=== PATIENT | female | born 1955 | race Asian ===

== ENCOUNTER → 2018-01-16 | Outpatient (CLI) | payer OTHER ==
[~2018-01-16] MED LIST: CALCIUM PO; ENOX80DI9 SQ; FERR160T PO; HYDR200T4 PO; LEVO PO; LEVO112T7 PO; MULT1TAB70 PO; OMEG300C3 PO; OMEP20CA4 PO
== END | disposition home or self-care (01) ==
LOC: RADPV 11:05
PROVIDERS: ATTEND Family Medicine
DX: M16.11 Unilateral primary osteoarthritis, right hip (principal)
CPT/HCPCS: 73502

== ENCOUNTER → 2018-11-20 | Outpatient (CLI) | payer OTHER | END | disposition home or self-care (01) | LOC: RADPV 09:49 | PROVIDERS: ATTEND Family Medicine | DX: M12.88 Other specific arthropathies, not elsewhere classified, other specified site (principal); M25.70 Osteophyte, unspecified joint | CPT/HCPCS: 72040 ==

== ENCOUNTER → 2018-12-14 | Outpatient (CLI) | payer OTHER | END | disposition home or self-care (01) | LOC: RADPV 09:36 | PROVIDERS: ATTEND Family Medicine | DX: Z01.818 Encounter for other preprocedural examination (principal); I70.0 Atherosclerosis of aorta; M43.22 Fusion of spine, cervical region; I51.7 Cardiomegaly ==

== ENCOUNTER 2019-01-25 20:18 | Emergency (ER) | payer OTHER ==
[~2019-01-25] VITALS: Ht 157.5 cm; Wt 62.0 kg
[~2019-01-25 20:18] MED LIST changes: -CALCIUM PO; -ENOX80DI9 SQ; -FERR160T PO; -LEVO PO; -LEVO112T7 PO; +LEVO88TA4 PO; +LISI-661 PO; -MULT1TAB70 PO; -OMEG300C3 PO; -OMEP20CA4 PO; +PERCT PO; +RIVA10 PO; +SIMV-259 PO
[2019-01-25 20:54] LABS: GLUCOSE,POINT OF CARE 128 MG/DL (70-110)
[2019-01-25 22:01] LABS: EOSINOPHILS % (AUTO) 1.5 % (1.0-6.0); HEMATOCRIT 33.2 % (36-46); HEMOGLOBIN 10.6 g/dL (12.0-16.0); LYMPHOCYTES # (AUTO) 1.1 K/uL (1.0-4.8); LYMPHOCYTES % (AUTO) 14.4 % (22.0-44.0); MEAN CORPUSCULAR HEMOGLOBIN 26.2 pg (26.0-34.0); MEAN CORPUSCULAR HGB CONC 32.1 G/dL (31.0-37.0); MEAN CORPUSCULAR VOLUME 82 fL (80-100); MONOCYTES # (AUTO) 0.5 K/uL (0.1-1.0); MONOCYTES % (AUTO) 6.3 % (2.0-9.0); NEUTROPHILS # (AUTO) 5.8 K/uL (1.8-7.7); NEUTROPHILS % (AUTO) 76.8 % (40.0-70.0); PLATELET COUNT (AUTO) 338 K/uL (150-450); RED BLOOD CELL COUNT(AUTO) 4.06 MIL/uL (4.00-5.20); RED CELL DISTRIBUTION WIDTH 14.2 % (11.5-14.5)
[2019-01-25 22:04] LABS: ANION GAP 8 mmol/L (8-16); CALCIUM, TOTAL 9.3 mg/dL (8.8-10.5); CARBON DIOXIDE 27 mmol/L (22-29); CHLORIDE 106 mmol/L (98-107); CREATININE 0.65 mg/dL (0.60-1.30); GLOMERULAR FILTR. RATE CALC > 60 mL/min (>60); GLUCOSE,RANDOM 134 mg/dL (70-110); SODIUM SERUM 141 mmol/L (136-145); UREA NITROGEN, BLOOD 8 mg/dL (7-18)
[2019-01-25 22:09] LABS: ALANINE AMINOTRANSFERASE 18 U/L (12-78); ALBUMIN 3.1 g/dL (3.4-5.0); ALKALINE PHOSPHATASE 64 U/L (46-116); ASPARTATE AMINOTRANSFERASE 18 U/L (15-37); BILIRUBIN,TOTAL 0.4 mg/dL (0.1-1.0); TOTAL PROTEIN, SERUM 7.1 g/dL (6.4-8.2)
[2019-01-25 22:12] LABS: INR 0.9 (0.9-1.1); PROTHROMBIN TIME 9.9 SEC (9.4-11.6)
[2019-01-26 01:25] VITALS: BP 130/88
== END 2019-01-26 01:35 | disposition home or self-care (01) ==
LOC: EMS 20:19
DX: F41.9 Anxiety disorder, unspecified (principal); F43.0 Acute stress reaction; E03.9 Hypothyroidism, unspecified; Z96.641 Presence of right artificial hip joint; Z88.6 Allergy status to analgesic agent; Z88.8 Allergy status to other drugs, medicaments and biological substances; Z79.899 Other long term (current) drug therapy
CPT/HCPCS: 84443

== ENCOUNTER 2019-01-31 07:21 | Inpatient (IN) | payer OTHER ==
[~2019-01-31] VITALS: Ht 157.5 cm; Wt 60.0 kg
[2019-01-31] MEDS ORDERED: DiphenhydrAMINE HCL 50 MG/ML VIAL IVP ONE (08:15)
[2019-01-31] MEDS ORDERED: ONDANSETRON HCL 4 MG/2 ML VIAL IVP ONE (08:15)
[2019-01-31] MEDS ORDERED: MORPHINE SULFATE 4 MG/ML SYRINGE IVP ONE (08:15)
[2019-01-31 09:34] LABS: BASOPHILS % (AUTO) 0.8 % (0.0-2.0); EOSINOPHILS % (AUTO) 0.7 % (1.0-6.0); HEMATOCRIT 33.2 % (36-46); HEMOGLOBIN 10.5 g/dL (12.0-16.0); LYMPHOCYTES # (AUTO) 0.9 K/uL (1.0-4.8); LYMPHOCYTES % (AUTO) 10.2 % (22.0-44.0); MEAN CORPUSCULAR HGB CONC 31.7 G/dL (31.0-37.0); MEAN CORPUSCULAR VOLUME 82 fL (80-100); MONOCYTES # (AUTO) 0.4 K/uL (0.1-1.0); MONOCYTES % (AUTO) 4.9 % (2.0-9.0); NEUTROPHILS # (AUTO) 7.5 K/uL (1.8-7.7); NEUTROPHILS % (AUTO) 83.4 % (40.0-70.0); PLATELET COUNT (AUTO) 486 K/uL (150-450); RED BLOOD CELL COUNT(AUTO) 4.04 MIL/uL (4.00-5.20); RED CELL DISTRIBUTION WIDTH 14.2 % (11.5-14.5)
[2019-01-31 09:46] LABS: PROTHROMBIN TIME 10.5 SEC (9.4-11.6)
[2019-01-31 09:54] LABS: ANION GAP 7 mmol/L (8-16); CALCIUM, TOTAL 9.7 mg/dL (8.8-10.5); CARBON DIOXIDE 29 mmol/L (22-29); CHLORIDE 104 mmol/L (98-107); GLOMERULAR FILTR. RATE CALC > 60 mL/min (>60); GLUCOSE,RANDOM 132 mg/dL (70-110); POTASSIUM 4.5 mmol/L (3.5-5.1); SODIUM SERUM 140 mmol/L (136-145); UREA NITROGEN, BLOOD 13 mg/dL (7-18)
[2019-01-31 10:08] LABS: ALANINE AMINOTRANSFERASE 17 U/L (12-78); ALBUMIN 3.3 g/dL (3.4-5.0); ALKALINE PHOSPHATASE 82 U/L (46-116); ASPARTATE AMINOTRANSFERASE 15 U/L (15-37); BILIRUBIN,TOTAL 0.3 mg/dL (0.1-1.0); THYROID STIMULATING HORMONE 9.04 uIU/mL (0.36-3.74); TOTAL PROTEIN, SERUM 7.5 g/dL (6.4-8.2)
[2019-01-31] MEDS ORDERED: ACETAMINOPHEN 325 MG TABLET PO PRN (10:45)
[2019-01-31] MEDS ORDERED: ONDANSETRON HCL 4 MG/2 ML VIAL IVP PRN ×2 (10:45→11:30)
[2019-01-31] MEDS ORDERED: HYDROCODONE/ACETAMINOPHEN 5-325 MG TABLET PO PRN (10:45)
[2019-01-31] MEDS ORDERED: 0.9% SODIUM CHLORIDE 10 ML SYRINGE IVP PRN ×2 (10:45→11:30)
[2019-01-31] MEDS ORDERED: MORPHINE SULFATE 2 MG/ML SYRINGE IVP PRN ×2 (10:45→11:30)
[2019-01-31] MEDS ORDERED: IPRATROPIUM BROMIDE 0.5 MG/2.5 ML NEB SOLUTION NEB PRN (11:30)
[2019-01-31] MEDS ORDERED: BISACODYL 10 MG RECTAL RECTAL SUPPOSITORY PR PRN (11:30)
[2019-01-31] MEDS ORDERED: ALBUTEROL SULFATE 2.5 MG/0.5 ML NEB SOLUTION NEB PRN (11:30)
[2019-01-31] MEDS ORDERED: MAGNESIUM HYDROXIDE SUSPENSION 30 ML UDCUP PO PRN (11:30)
[2019-01-31 15:15] VITALS: BP 124/52
[2019-01-31] MEDS: OxyCODONE HCL/ACETAMINOPHEN 5-325 MG TABLET PO PRN (16:46)
[2019-01-31 18:45] VITALS: BP 141/70
[2019-01-31] MEDS: HYDROmorphone 2 MG/ML SYRINGE IVP PRN (18:47)
[2019-01-31] MEDS: DOCUSATE SODIUM 100 MG CAPSULE PO SCH (20:17)
[2019-01-31 20:23] VITALS: BP 153/68
[2019-01-31] MEDS ORDERED: HEPARIN SODIUM,PORCINE 5,000 UNITS/ML VIAL SQ SCH (21:00)
[2019-02-01] VITALS (7 sets, daily range): BP systolic 112–148; BP diastolic 49–68
[2019-02-01] MEDS: OxyCODONE HCL/ACETAMINOPHEN 5-325 MG TABLET PO PRN (00:21)
[2019-02-01] MEDS: LEVOTHYROXINE SODIUM 100 MCG TABLET PO SCH (05:58)
[2019-02-01 06:11] LABS: BASOPHILS % (AUTO) 1.5 % (0.0-2.0); EOSINOPHILS % (AUTO) 2.7 % (1.0-6.0); HEMOGLOBIN 10.1 g/dL (12.0-16.0); LYMPHOCYTES # (AUTO) 1.4 K/uL (1.0-4.8); LYMPHOCYTES % (AUTO) 22.1 % (22.0-44.0); MEAN CORPUSCULAR HEMOGLOBIN 26.7 pg (26.0-34.0); MEAN CORPUSCULAR HGB CONC 32.7 G/dL (31.0-37.0); MEAN CORPUSCULAR VOLUME 82 fL (80-100); MONOCYTES # (AUTO) 0.5 K/uL (0.1-1.0); MONOCYTES % (AUTO) 7.2 % (2.0-9.0); NEUTROPHILS # (AUTO) 4.2 K/uL (1.8-7.7); NEUTROPHILS % (AUTO) 66.5 % (40.0-70.0); PLATELET COUNT (AUTO) 472 K/uL (150-450); RED BLOOD CELL COUNT(AUTO) 3.79 MIL/uL (4.00-5.20); RED CELL DISTRIBUTION WIDTH 14.1 % (11.5-14.5)
[2019-02-01 06:26] LABS: ALANINE AMINOTRANSFERASE 14 U/L (12-78); ALBUMIN 2.9 g/dL (3.4-5.0); ALKALINE PHOSPHATASE 74 U/L (46-116); ANION GAP 5 mmol/L (8-16); ASPARTATE AMINOTRANSFERASE 12 U/L (15-37); BILIRUBIN,TOTAL 0.4 mg/dL (0.1-1.0); CALCIUM, TOTAL 9.3 mg/dL (8.8-10.5); CARBON DIOXIDE 29 mmol/L (22-29); CHLORIDE 103 mmol/L (98-107); CREATININE 0.73 mg/dL (0.60-1.30); GLOMERULAR FILTR. RATE CALC > 60 mL/min (>60); GLUCOSE,RANDOM 108 mg/dL (70-110); POTASSIUM 4.2 mmol/L (3.5-5.1); SODIUM SERUM 137 mmol/L (136-145); TOTAL PROTEIN, SERUM 6.9 g/dL (6.4-8.2); UREA NITROGEN, BLOOD 14 mg/dL (7-18)
[2019-02-01] MEDS: DOCUSATE SODIUM 100 MG CAPSULE PO SCH ×2 (08:52→20:06)
[2019-02-01] MEDS: SIMVASTATIN 10 MG TABLET PO SCH (08:52)
[2019-02-01] MEDS: PANTOPRAZOLE SODIUM 40 MG DR TABLET PO SCH (08:52)
[2019-02-01] MEDS: HYDROXYCHLOROQUINE SULFATE 200 MG TABLET PO SCH (08:52)
[2019-02-01] MEDS: LISINOPRIL 10 MG TABLET PO SCH (08:53)
[2019-02-01] MEDS: MULTIVITAMINS WITH MINERALS, THERAPEUTIC TABLET PO SCH (12:12)
[2019-02-02] MEDS ORDERED: RINGERS SOLUTION,LACTATED 1,000 ML IV SCH (05:45)
[2019-02-02] MEDS ORDERED: RINGERS SOLUTION,LACTATED 1,000 ML IV ONE ×2 (06:00→07:02)
[2019-02-02] MEDS: LEVOTHYROXINE SODIUM 100 MCG TABLET PO SCH (06:19)
[2019-02-02] MEDS ORDERED: SODIUM CHLORIDE 0.9% 100 ML ONE (07:02)
[2019-02-02] MEDS ORDERED: POVIDONE-IODINE 30 GM OINTMENT TP ONE (07:02)
[2019-02-02] MEDS ORDERED: SODIUM CHLORIDE 0.9% 10 ML ONE ×2 (07:02→10:16)
[2019-02-02] MEDS ORDERED: SODIUM CL IRRIG SOLN BAG 3,000 ML IRRIG ONE ×2 (07:02→09:33)
[2019-02-02] MEDS ORDERED: BACITRACIN 50,000 UNITS/VIAL ONE ×2 (07:03→10:16)
[2019-02-02] MEDS ORDERED: BUPIVACAINE LIPOSOME/PF 1.3%-13.3MG/ML SUSPENSION 20 ML VIAL INJ ONE (07:30)
[2019-02-02] MEDS ORDERED: TRANEXAMIC ACID 1,000 MG in DEXTROSE 5%-WATER 50 ML IV ONE (07:30)
[2019-02-02] MEDS ORDERED: FentaNYL CITRATE-PF 100 MCG/2 ML VIAL IVP PRN (08:15)
[2019-02-02] MEDS ORDERED: HYDROmorphone 2 MG/ML SYRINGE IVP PRN (08:15)
[2019-02-02] MEDS: HYDROXYCHLOROQUINE SULFATE 200 MG TABLET PO SCH (09:00)
[2019-02-02] MEDS: PANTOPRAZOLE SODIUM 40 MG DR TABLET PO SCH (09:00)
[2019-02-02] MEDS: DOCUSATE SODIUM 100 MG CAPSULE PO SCH ×3 (09:00→21:20)
[2019-02-02] MEDS: LISINOPRIL 10 MG TABLET PO SCH (09:00)
[2019-02-02] MEDS: MULTIVITAMINS WITH MINERALS, THERAPEUTIC TABLET PO SCH (09:00)
[2019-02-02] MEDS ORDERED: DEXTROSE 5%-LACTATED RINGERS 1,000 ML IV SCH (11:22)
[2019-02-02] MEDS ORDERED: ZOLPIDEM TARTRATE 10 MG TABLET PO PRN (11:30)
[2019-02-02] MEDS ORDERED: ONDANSETRON HCL 4 MG/2 ML VIAL IVP PRN (11:30)
[2019-02-02] MEDS ORDERED: BISACODYL 10 MG RECTAL RECTAL SUPPOSITORY PR PRN (11:30)
[2019-02-02] MEDS ORDERED: DiphenhydrAMINE HCL 50 MG/ML VIAL IVP PRN (11:30)
[2019-02-02] MEDS ORDERED: BACITRACIN 28.4 GM OINTMENT TP PRN (11:30)
[2019-02-02] MEDS ORDERED: BENZOCAINE/MENTHOL LOZENGE PO PRN (11:30)
[2019-02-02] MEDS ORDERED: MAG HYDROX/AL HYDROX/SIMETH 30 ML SUSP UDCUP PO PRN (11:30)
[2019-02-02] MEDS ORDERED: PROPOFOL 1% 20 ML VIAL IVP ONE (12:00)
[2019-02-02] MEDS ORDERED: FentaNYL CITRATE-PF 100 MCG/2 ML VIAL IVP ONE (12:00)
[2019-02-02] MEDS ORDERED: LIDOCAINE/PF 2% 5 ML VIAL INJ ONE (12:00)
[2019-02-02] MEDS ORDERED: ROCURONIUM BROMIDE 10 MG/ML 5 ML VIAL IVP ONE (12:00)
[2019-02-02] MEDS ORDERED: HYDROmorphone 2 MG/ML SYRINGE IVP ONE (12:00)
[2019-02-02] MEDS ORDERED: ONDANSETRON HCL 4 MG/2 ML VIAL IVP ONE (12:00)
[2019-02-02 12:19] VITALS: BP 163/76
[2019-02-02] MEDS ORDERED: CARBOXYMETHYLCELLULOSE SODIUM 0.4 ML OPHTHALMIC SOLUTION [PF] OU PRN (13:30)
[2019-02-02 15:41] VITALS: BP 135/62
[2019-02-02] MEDS: CeFAZolin 1 GM/DEXTROSE 50 ML IV SCH ×2 (16:24→23:46)
[2019-02-02] MEDS: SIMVASTATIN 10 MG TABLET PO SCH (16:25)
[2019-02-02] MEDS: OxyCODONE HCL/ACETAMINOPHEN 5-325 MG TABLET PO PRN (16:27)
[2019-02-02] MEDS: HYDROmorphone 2 MG/ML SYRINGE IVP PRN ×2 (17:10→21:27)
[2019-02-02] MEDS: FAMOTIDINE 20 MG TABLET PO SCH (20:02)
[2019-02-02 20:06] VITALS: BP 139/65
[2019-02-02] MEDS ORDERED: DOCUSATE SODIUM 100 MG CAPSULE PO SCH (21:00)
[2019-02-02] MEDS: ACETAMINOPHEN 325 MG TABLET PO PRN (23:48)
[2019-02-02 23:55] VITALS: BP 147/61
[2019-02-03] MEDS: ACETAMINOPHEN 325 MG TABLET PO PRN ×3 (04:44→17:46)
[2019-02-03 04:57] VITALS: BP 122/74
[2019-02-03 06:09] LABS: BASOPHILS % (AUTO) 0.8 % (0.0-2.0); EOSINOPHILS % (AUTO) 0.7 % (1.0-6.0); HEMATOCRIT 27.3 % (36-46); HEMOGLOBIN 8.9 g/dL (12.0-16.0); LYMPHOCYTES # (AUTO) 1.3 K/uL (1.0-4.8); LYMPHOCYTES % (AUTO) 12.8 % (22.0-44.0); MEAN CORPUSCULAR HEMOGLOBIN 26.5 pg (26.0-34.0); MEAN CORPUSCULAR HGB CONC 32.7 G/dL (31.0-37.0); MEAN CORPUSCULAR VOLUME 81 fL (80-100); MONOCYTES # (AUTO) 1.1 K/uL (0.1-1.0); MONOCYTES % (AUTO) 10.8 % (2.0-9.0); NEUTROPHILS # (AUTO) 7.7 K/uL (1.8-7.7); NEUTROPHILS % (AUTO) 74.9 % (40.0-70.0); PLATELET COUNT (AUTO) 505 K/uL (150-450); RED BLOOD CELL COUNT(AUTO) 3.36 MIL/uL (4.00-5.20); RED CELL DISTRIBUTION WIDTH 13.8 % (11.5-14.5)
[2019-02-03 07:17] LABS: ANION GAP 9 mmol/L (8-16); CALCIUM, TOTAL 8.7 mg/dL (8.8-10.5); CARBON DIOXIDE 27 mmol/L (22-29); CHLORIDE 98 mmol/L (98-107); CREATININE 0.73 mg/dL (0.60-1.30); GLOMERULAR FILTR. RATE CALC > 60 mL/min (>60); GLUCOSE,RANDOM 193 mg/dL (70-110); POTASSIUM 4.2 mmol/L (3.5-5.1); SODIUM SERUM 134 mmol/L (136-145); UREA NITROGEN, BLOOD 10 mg/dL (7-18)
[2019-02-03] MEDS: OXYGEN THERAPY IH SCH (08:00)
[2019-02-03 08:18] VITALS: BP 134/60
[2019-02-03] MEDS: LISINOPRIL 10 MG TABLET PO SCH (08:21)
[2019-02-03] MEDS: LEVOTHYROXINE SODIUM 100 MCG TABLET PO SCH (08:21)
[2019-02-03] MEDS: RIVAROXABAN 10 MG TABLET PO SCH ×2 (08:22→18:13)
[2019-02-03] MEDS: PANTOPRAZOLE SODIUM 40 MG DR TABLET PO SCH (08:22)
[2019-02-03] MEDS: MULTIVITAMINS WITH MINERALS, THERAPEUTIC TABLET PO SCH (08:22)
[2019-02-03] MEDS: FAMOTIDINE 20 MG TABLET PO SCH ×2 (08:22→20:35)
[2019-02-03] MEDS: SIMVASTATIN 10 MG TABLET PO SCH (08:22)
[2019-02-03] MEDS: HYDROXYCHLOROQUINE SULFATE 200 MG TABLET PO SCH (08:22)
[2019-02-03 11:45] VITALS: BP 123/55
[2019-02-03 16:35] VITALS: BP 125/57
[2019-02-03 19:43] VITALS: BP 139/57
[2019-02-03] MEDS: DOCUSATE SODIUM 100 MG CAPSULE PO SCH (20:36)
[2019-02-04] MEDS: ACETAMINOPHEN 325 MG TABLET PO PRN (01:07)
[2019-02-04 01:11] VITALS: BP 141/66
[2019-02-04 04:00] VITALS: BP 143/64
[2019-02-04] MEDS: LEVOTHYROXINE SODIUM 100 MCG TABLET PO SCH (06:21)
[2019-02-04] MEDS: OXYGEN THERAPY IH SCH (08:00)
[2019-02-04 08:04] VITALS: BP 138/65
[2019-02-04] MEDS: DOCUSATE SODIUM 100 MG CAPSULE PO SCH (08:46)
[2019-02-04] MEDS: HYDROXYCHLOROQUINE SULFATE 200 MG TABLET PO SCH (08:46)
[2019-02-04] MEDS: SIMVASTATIN 10 MG TABLET PO SCH (08:46)
[2019-02-04] MEDS: PANTOPRAZOLE SODIUM 40 MG DR TABLET PO SCH (08:46)
[2019-02-04] MEDS: FAMOTIDINE 20 MG TABLET PO SCH (08:46)
[2019-02-04] MEDS: MULTIVITAMINS WITH MINERALS, THERAPEUTIC TABLET PO SCH (08:46)
[2019-02-04] MEDS: LISINOPRIL 10 MG TABLET PO SCH (08:46)
[2019-02-04] MEDS: OxyCODONE HCL/ACETAMINOPHEN 5-325 MG TABLET PO PRN (08:50)
[2019-02-04 11:40] VITALS: BP 118/49
[2019-02-04 16:01] VITALS: BP 123/73
[2019-02-04] MEDS ORDERED: SODIUM CHLORIDE 0.9% 500 ML IV ONE (16:31)
[2019-02-04] MEDS ORDERED: CALCIUM CIT/VITAMIN D3 200 MG-250 UNITS TABLET PO SCH (21:00)
== END 2019-02-04 17:23 | DRG 467 ==
LOC: EMS 07:25 → 4E 15:10
PROVIDERS: ADMIT Internal Medicine; ATTEND Internal Medicine
PROC: 0SPR0JZ Removal of Synthetic Substitute from Right Hip Joint, Femoral Surface, Open Approach (ICD-10-PCS; 2019-02-02)
PROC: 0QS604Z Reposition Right Upper Femur with Internal Fixation Device, Open Approach (ICD-10-PCS; 2019-02-02)
PROC: 0SRR0JZ Replacement of Right Hip Joint, Femoral Surface with Synthetic Substitute, Open Approach (ICD-10-PCS; principal; 2019-02-02 07:30)
DX: M97.01XA Periprosthetic fracture around internal prosthetic right hip joint, initial encounter (principal); E44.0 Moderate protein-calorie malnutrition; E78.00 Pure hypercholesterolemia, unspecified; Z96.641 Presence of right artificial hip joint; M32.9 Systemic lupus erythematosus, unspecified; E03.9 Hypothyroidism, unspecified; D63.8 Anemia in other chronic diseases classified elsewhere; I10 Essential (primary) hypertension; M19.90 Unspecified osteoarthritis, unspecified site; M81.0 Age-related osteoporosis without current pathological fracture; Z96.642 Presence of left artificial hip joint
CPT/HCPCS: 73502; 73552; 84443; 87081; 93005; 97116; 97162; 97167; 97530; 97535; C9290; G0378; J0690; J1170; J1200; J2270; J2405; J2704; J3010; J3490; J7040; J7050; J7060; J7120

== ENCOUNTER 2019-02-04 17:07 | Inpatient (IN) | payer OTHER ==
[~2019-02-04] VITALS: Ht 157.5 cm; Wt 61.5 kg
[2019-02-04 17:15] VITALS: BP 130/64
[2019-02-04] MEDS ORDERED: HYDROCODONE/ACETAMINOPHEN 10-325 MG TABLET PO PRN (19:15)
[2019-02-04] MEDS ORDERED: CARBOXYMETHYLCELLULOSE SODIUM 0.4 ML OPHTHALMIC SOLUTION [PF] OU PRN (19:15)
[2019-02-04] MEDS ORDERED: IPRATROPIUM BROMIDE 0.5 MG/2.5 ML NEB SOLUTION NEB PRN (19:15)
[2019-02-04] MEDS ORDERED: MAGNESIUM HYDROXIDE SUSPENSION 30 ML UDCUP PO PRN (19:15)
[2019-02-04] MEDS: ACETAMINOPHEN 325 MG TABLET PO PRN (20:49)
[2019-02-04] MEDS: DOCUSATE SODIUM 100 MG CAPSULE PO SCH (20:49)
[2019-02-04] MEDS: CALCIUM CIT/VITAMIN D3 200 MG-250 UNITS TABLET PO SCH (20:49)
[2019-02-04] MEDS: FAMOTIDINE 20 MG TABLET PO SCH (20:49)
[2019-02-04] MEDS: BACITRACIN 28.4 GM OINTMENT TP SCH (21:00)
[2019-02-05 03:52] VITALS: BP 134/64
[2019-02-05] MEDS: LEVOTHYROXINE SODIUM 100 MCG TABLET PO SCH (06:18)
[2019-02-05 06:39] LABS: BASOPHILS % (AUTO) 1.1 % (0.0-2.0); HEMATOCRIT 23.8 % (36-46); HEMOGLOBIN 7.7 g/dL (12.0-16.0); LYMPHOCYTES # (AUTO) 1.3 K/uL (1.0-4.8); LYMPHOCYTES % (AUTO) 13.9 % (22.0-44.0); MEAN CORPUSCULAR HEMOGLOBIN 26.3 pg (26.0-34.0); MEAN CORPUSCULAR HGB CONC 32.3 G/dL (31.0-37.0); MEAN CORPUSCULAR VOLUME 81 fL (80-100); MONOCYTES # (AUTO) 0.7 K/uL (0.1-1.0); MONOCYTES % (AUTO) 7.3 % (2.0-9.0); NEUTROPHILS # (AUTO) 6.9 K/uL (1.8-7.7); NEUTROPHILS % (AUTO) 75.7 % (40.0-70.0); PLATELET COUNT (AUTO) 491 K/uL (150-450); RED BLOOD CELL COUNT(AUTO) 2.93 MIL/uL (4.00-5.20)
[2019-02-05 07:12] LABS: ALANINE AMINOTRANSFERASE 25 U/L (12-78); ALBUMIN 2.3 g/dL (3.4-5.0); ALKALINE PHOSPHATASE 116 U/L (46-116); ANION GAP 9 mmol/L (8-16); ASPARTATE AMINOTRANSFERASE 25 U/L (15-37); BILIRUBIN,TOTAL 0.4 mg/dL (0.1-1.0); CALCIUM, TOTAL 9.2 mg/dL (8.8-10.5); CARBON DIOXIDE 28 mmol/L (22-29); CHLORIDE 101 mmol/L (98-107); CREATININE 0.69 mg/dL (0.60-1.30); GLOMERULAR FILTR. RATE CALC > 60 mL/min (>60); GLUCOSE,RANDOM 140 mg/dL (70-110); POTASSIUM 4.4 mmol/L (3.5-5.1); SODIUM SERUM 138 mmol/L (136-145); TOTAL PROTEIN, SERUM 6.4 g/dL (6.4-8.2); UREA NITROGEN, BLOOD 14 mg/dL (7-18)
[2019-02-05 07:47] VITALS: BP 137/61
[2019-02-05] MEDS: FAMOTIDINE 20 MG TABLET PO SCH ×2 (08:48→19:29)
[2019-02-05] MEDS: ACETAMINOPHEN 325 MG TABLET PO PRN ×3 (08:48→19:19)
[2019-02-05] MEDS: DOCUSATE SODIUM 100 MG CAPSULE PO SCH ×2 (08:48→19:21)
[2019-02-05] MEDS: CALCIUM CIT/VITAMIN D3 200 MG-250 UNITS TABLET PO SCH ×2 (08:48→19:29)
[2019-02-05] MEDS: HYDROXYCHLOROQUINE SULFATE 200 MG TABLET PO SCH (08:48)
[2019-02-05] MEDS: SIMVASTATIN 10 MG TABLET PO SCH (08:48)
[2019-02-05] MEDS: BACITRACIN 28.4 GM OINTMENT TP SCH ×2 (09:00→19:33)
[2019-02-05] MEDS ORDERED: ONDANSETRON HCL 4 MG TABLET PO PRN (11:30)
[2019-02-05] MEDS ORDERED: EPOETIN ALFA 10,000 UNITS/ML VIAL SQ ONE (12:00)
[2019-02-05 16:05] VITALS: BP 141/56
[2019-02-05] MEDS: RIVAROXABAN 10 MG TABLET PO SCH (17:51)
[2019-02-05] MEDS: FERROUS GLUCONATE 324 MG TABLET PO SCH (17:51)
[2019-02-05 23:14] VITALS: BP 135/64
[2019-02-05] MEDS: HYDROCODONE/ACETAMINOPHEN 5-325 MG TABLET PO PRN (23:14)
[2019-02-06] MEDS: LEVOTHYROXINE SODIUM 100 MCG TABLET PO SCH (06:32)
[2019-02-06 07:07] LABS: BASOPHILS % (AUTO) 1.6 % (0.0-2.0); EOSINOPHILS % (AUTO) 3.3 % (1.0-6.0); HEMATOCRIT 23.1 % (36-46); HEMOGLOBIN 7.5 g/dL (12.0-16.0); LYMPHOCYTES # (AUTO) 1.3 K/uL (1.0-4.8); LYMPHOCYTES % (AUTO) 19.6 % (22.0-44.0); MEAN CORPUSCULAR HEMOGLOBIN 26.2 pg (26.0-34.0); MEAN CORPUSCULAR HGB CONC 32.2 G/dL (31.0-37.0); MEAN CORPUSCULAR VOLUME 81 fL (80-100); MONOCYTES # (AUTO) 0.4 K/uL (0.1-1.0); MONOCYTES % (AUTO) 5.5 % (2.0-9.0); NEUTROPHILS # (AUTO) 4.5 K/uL (1.8-7.7); PLATELET COUNT (AUTO) 530 K/uL (150-450); RED BLOOD CELL COUNT(AUTO) 2.84 MIL/uL (4.00-5.20)
[2019-02-06 07:20] VITALS: BP 139/55
[2019-02-06 07:41] LABS: HEMOGLOBIN A1C 6.7 % (4.5-6.2)
[2019-02-06 08:04] LABS: % IRON SATURATION 14.6 % (22-44)
[2019-02-06 08:06] LABS: CHOL/HDL RATIO 2.8 (3.9-5.7)
[2019-02-06] MEDS: SIMVASTATIN 10 MG TABLET PO SCH (08:52)
[2019-02-06] MEDS: HYDROXYCHLOROQUINE SULFATE 200 MG TABLET PO SCH (08:52)
[2019-02-06] MEDS: FERROUS GLUCONATE 324 MG TABLET PO SCH ×2 (08:52→17:07)
[2019-02-06] MEDS: DOCUSATE SODIUM 100 MG CAPSULE PO SCH ×2 (08:52→21:00)
[2019-02-06] MEDS: CALCIUM CIT/VITAMIN D3 200 MG-250 UNITS TABLET PO SCH ×2 (08:52→21:32)
[2019-02-06] MEDS: FAMOTIDINE 20 MG TABLET PO SCH ×2 (08:56→21:32)
[2019-02-06] MEDS: BACITRACIN 28.4 GM OINTMENT TP SCH ×2 (09:00→21:00)
[2019-02-06] MEDS: HYDROCODONE/ACETAMINOPHEN 5-325 MG TABLET PO PRN ×2 (09:31→16:21)
[2019-02-06 16:00] VITALS: BP 142/57
[2019-02-06] MEDS: RIVAROXABAN 10 MG TABLET PO SCH (17:07)
[2019-02-07 00:02] VITALS: BP 139/67
[2019-02-07] MEDS: LEVOTHYROXINE SODIUM 100 MCG TABLET PO SCH (06:08)
[2019-02-07 07:20] VITALS: BP 130/58
[2019-02-07] MEDS: FERROUS GLUCONATE 324 MG TABLET PO SCH ×2 (08:32→17:47)
[2019-02-07] MEDS: CALCIUM CIT/VITAMIN D3 200 MG-250 UNITS TABLET PO SCH ×2 (08:32→20:30)
[2019-02-07] MEDS: HYDROXYCHLOROQUINE SULFATE 200 MG TABLET PO SCH (08:32)
[2019-02-07] MEDS: FAMOTIDINE 20 MG TABLET PO SCH ×2 (08:32→20:31)
[2019-02-07] MEDS: DOCUSATE SODIUM 100 MG CAPSULE PO SCH ×2 (08:33→20:29)
[2019-02-07] MEDS: HYDROCODONE/ACETAMINOPHEN 5-325 MG TABLET PO PRN ×3 (08:33→15:36)
[2019-02-07] MEDS: BACITRACIN 28.4 GM OINTMENT TP SCH ×2 (08:34→20:33)
[2019-02-07 09:10] LABS: BASOPHILS % (AUTO) 2.3 % (0.0-2.0); EOSINOPHILS % (AUTO) 3.1 % (1.0-6.0); HEMATOCRIT 24.8 % (36-46); HEMOGLOBIN 7.8 g/dL (12.0-16.0); LYMPHOCYTES # (AUTO) 1.9 K/uL (1.0-4.8); LYMPHOCYTES % (AUTO) 21.8 % (22.0-44.0); MEAN CORPUSCULAR HEMOGLOBIN 25.9 pg (26.0-34.0); MEAN CORPUSCULAR HGB CONC 31.4 G/dL (31.0-37.0); MEAN CORPUSCULAR VOLUME 82 fL (80-100); MONOCYTES # (AUTO) 0.5 K/uL (0.1-1.0); MONOCYTES % (AUTO) 5.8 % (2.0-9.0); NEUTROPHILS # (AUTO) 5.8 K/uL (1.8-7.7); PLATELET COUNT (AUTO) 650 K/uL (150-450); RED BLOOD CELL COUNT(AUTO) 3.01 MIL/uL (4.00-5.20); RED CELL DISTRIBUTION WIDTH 14.3 % (11.5-14.5)
[2019-02-07 15:36] VITALS: BP 134/56
[2019-02-07] MEDS: RIVAROXABAN 10 MG TABLET PO SCH (17:47)
[2019-02-07] MEDS: ACETAMINOPHEN 325 MG TABLET PO PRN (20:36)
[2019-02-07] MEDS ORDERED: SIMVASTATIN 10 MG TABLET PO SCH (21:00)
[2019-02-08 04:00] VITALS: BP 140/60
[2019-02-08] MEDS: LEVOTHYROXINE SODIUM 100 MCG TABLET PO SCH (06:40)
[2019-02-08 07:30] VITALS: BP 146/66
[2019-02-08] MEDS: EPOETIN ALFA 10,000 UNITS/ML VIAL SQ SCH (07:53)
[2019-02-08] MEDS: FERROUS GLUCONATE 324 MG TABLET PO SCH ×2 (07:53→16:47)
[2019-02-08] MEDS: HYDROXYCHLOROQUINE SULFATE 200 MG TABLET PO SCH (07:53)
[2019-02-08] MEDS: BACITRACIN 28.4 GM OINTMENT TP SCH ×2 (07:53→20:54)
[2019-02-08] MEDS: CALCIUM CIT/VITAMIN D3 200 MG-250 UNITS TABLET PO SCH ×2 (07:53→20:53)
[2019-02-08] MEDS: DOCUSATE SODIUM 100 MG CAPSULE PO SCH ×2 (07:53→20:53)
[2019-02-08] MEDS: FAMOTIDINE 20 MG TABLET PO SCH ×2 (07:53→20:53)
[2019-02-08] MEDS: HYDROCODONE/ACETAMINOPHEN 5-325 MG TABLET PO PRN (08:32)
[2019-02-08] MEDS ORDERED: DEXTROSE 50%-WATER 25 GM/50 ML SYRINGE IVP PRN (13:30)
[2019-02-08] MEDS ORDERED: INSULIN LISPRO 100 UNITS/ML SQ PRN (13:30)
[2019-02-08 15:15] VITALS: BP 142/62
[2019-02-08] MEDS: NYSTATIN 500,000 UNITS/5 ML SUSPENSION UDCUP PO SCH ×2 (16:47→20:53)
[2019-02-08] MEDS: RIVAROXABAN 10 MG TABLET PO SCH (16:47)
[2019-02-08 17:35] LABS: GLUCOMETER DEV NAME(LOC) 2WR.1; GLUCOSE,POINT OF CARE 145 MG/DL (70-110)
[2019-02-08] MEDS: ACETAMINOPHEN 325 MG TABLET PO PRN (19:27)
[2019-02-08 20:50] VITALS: BP 135/72
[2019-02-08] MEDS: SIMVASTATIN 10 MG TABLET PO SCH (20:53)
[2019-02-09 00:30] VITALS: BP 138/54
[2019-02-09] MEDS: LEVOTHYROXINE SODIUM 100 MCG TABLET PO SCH (06:08)
[2019-02-09 06:20] LABS: GLUCOMETER DEV NAME(LOC) 2WR.1; GLUCOSE,POINT OF CARE 134 MG/DL (70-110)
[2019-02-09 07:15] VITALS: BP 138/66
[2019-02-09] MEDS: TraMADol HCL 50 MG TABLET PO PRN ×2 (08:18→22:41)
[2019-02-09] MEDS: NYSTATIN 500,000 UNITS/5 ML SUSPENSION UDCUP PO SCH ×4 (08:19→20:22)
[2019-02-09] MEDS: FERROUS GLUCONATE 324 MG TABLET PO SCH ×2 (08:19→17:29)
[2019-02-09] MEDS: CALCIUM CIT/VITAMIN D3 200 MG-250 UNITS TABLET PO SCH ×2 (08:19→20:22)
[2019-02-09] MEDS: FAMOTIDINE 20 MG TABLET PO SCH ×2 (08:19→20:22)
[2019-02-09] MEDS: HYDROXYCHLOROQUINE SULFATE 200 MG TABLET PO SCH (08:19)
[2019-02-09] MEDS: DOCUSATE SODIUM 100 MG CAPSULE PO SCH ×2 (08:20→20:22)
[2019-02-09] MEDS: BACITRACIN 28.4 GM OINTMENT TP SCH ×2 (08:20→20:22)
[2019-02-09 15:27] VITALS: BP 151/57
[2019-02-09] MEDS: RIVAROXABAN 10 MG TABLET PO SCH (17:30)
[2019-02-09 17:35] LABS: GLUCOMETER DEV NAME(LOC) 2WR.1; GLUCOSE,POINT OF CARE 104 MG/DL (70-110)
[2019-02-09] MEDS: ACETAMINOPHEN 325 MG TABLET PO PRN (19:30)
[2019-02-09 20:16] VITALS: BP 131/66
[2019-02-09] MEDS: SIMVASTATIN 10 MG TABLET PO SCH (20:23)
[2019-02-09 23:40] VITALS: BP 123/54
[2019-02-10 05:50] LABS: GLUCOMETER DEV NAME(LOC) 2WR.2; GLUCOSE,POINT OF CARE 118 MG/DL (70-110)
[2019-02-10] MEDS: LEVOTHYROXINE SODIUM 100 MCG TABLET PO SCH (06:03)
[2019-02-10 07:18] VITALS: BP 130/55
[2019-02-10] MEDS: FERROUS GLUCONATE 324 MG TABLET PO SCH ×2 (08:08→17:23)
[2019-02-10] MEDS: CALCIUM CIT/VITAMIN D3 200 MG-250 UNITS TABLET PO SCH ×2 (08:08→20:29)
[2019-02-10] MEDS: FAMOTIDINE 20 MG TABLET PO SCH ×2 (08:08→20:29)
[2019-02-10] MEDS: HYDROXYCHLOROQUINE SULFATE 200 MG TABLET PO SCH (08:08)
[2019-02-10] MEDS: DOCUSATE SODIUM 100 MG CAPSULE PO SCH ×2 (08:08→20:30)
[2019-02-10] MEDS: EPOETIN ALFA 10,000 UNITS/ML VIAL SQ SCH (08:10)
[2019-02-10] MEDS: NYSTATIN 500,000 UNITS/5 ML SUSPENSION UDCUP PO SCH ×4 (08:17→20:30)
[2019-02-10] MEDS: BACITRACIN 28.4 GM OINTMENT TP SCH ×2 (08:18→20:30)
[2019-02-10] MEDS: ACETAMINOPHEN 325 MG TABLET PO PRN ×2 (12:16→17:23)
[2019-02-10 15:01] VITALS: BP 143/74
[2019-02-10] MEDS: RIVAROXABAN 10 MG TABLET PO SCH (17:23)
[2019-02-10 17:56] LABS: GLUCOMETER DEV NAME(LOC) 2WR.1; GLUCOSE,POINT OF CARE 134 MG/DL (70-110)
[2019-02-10 20:27] VITALS: BP 137/63
[2019-02-10] MEDS: SIMVASTATIN 10 MG TABLET PO SCH (20:31)
[2019-02-10] MEDS ORDERED: MULT-248 PO (22:30)
[2019-02-10] MEDS ORDERED: OMEP20 PO (22:31)
[2019-02-10] MEDS ORDERED: CALC-789 PO (22:33)
[2019-02-10] MEDS ORDERED: CHOL100062 PO (22:34)
[2019-02-11 01:00] VITALS: BP 149/64
[2019-02-11 05:40] LABS: GLUCOMETER DEV NAME(LOC) 2WR.2; GLUCOSE,POINT OF CARE 134 MG/DL (70-110)
[2019-02-11] MEDS: LEVOTHYROXINE SODIUM 100 MCG TABLET PO SCH (06:10)
[2019-02-11 07:15] VITALS: BP 150/61
[2019-02-11] MEDS: HYDROXYCHLOROQUINE SULFATE 200 MG TABLET PO SCH (08:15)
[2019-02-11] MEDS: FAMOTIDINE 20 MG TABLET PO SCH ×2 (08:16→20:38)
[2019-02-11] MEDS: DOCUSATE SODIUM 100 MG CAPSULE PO SCH ×2 (08:16→20:39)
[2019-02-11] MEDS: CALCIUM CIT/VITAMIN D3 200 MG-250 UNITS TABLET PO SCH ×2 (08:16→20:38)
[2019-02-11] MEDS: FERROUS GLUCONATE 324 MG TABLET PO SCH ×2 (08:16→17:15)
[2019-02-11] MEDS: NYSTATIN 500,000 UNITS/5 ML SUSPENSION UDCUP PO SCH ×2 (08:16→13:00)
[2019-02-11] MEDS: BACITRACIN 28.4 GM OINTMENT TP SCH ×2 (08:17→20:39)
[2019-02-11] MEDS: ACETAMINOPHEN 325 MG TABLET PO PRN ×3 (08:20→20:38)
[2019-02-11 15:20] VITALS: BP_SYST 122; BP_SYST 146; BP_DIAS 61; BP_DIAS 77
[2019-02-11] MEDS: RIVAROXABAN 10 MG TABLET PO SCH (17:16)
[2019-02-11 17:45] LABS: GLUCOMETER DEV NAME(LOC) 2WR.1; GLUCOSE,POINT OF CARE 109 MG/DL (70-110)
[2019-02-11 20:34] VITALS: BP 140/66
[2019-02-11] MEDS: SIMVASTATIN 10 MG TABLET PO SCH (20:38)
[2019-02-12 05:30] VITALS: BP 144/70
[2019-02-12 06:00] LABS: GLUCOMETER DEV NAME(LOC) 2WR.2; GLUCOSE,POINT OF CARE 133 MG/DL (70-110)
[2019-02-12] MEDS: LEVOTHYROXINE SODIUM 100 MCG TABLET PO SCH (06:07)
[2019-02-12 06:19] LABS: BASOPHILS % (AUTO) 2.9 % (0.0-2.0); HEMATOCRIT 25.3 % (36-46); LYMPHOCYTES # (AUTO) 1.2 K/uL (1.0-4.8); LYMPHOCYTES % (AUTO) 23.1 % (22.0-44.0); MEAN CORPUSCULAR HEMOGLOBIN 26.4 pg (26.0-34.0); MEAN CORPUSCULAR HGB CONC 31.6 G/dL (31.0-37.0); MEAN CORPUSCULAR VOLUME 84 fL (80-100); MONOCYTES # (AUTO) 0.4 K/uL (0.1-1.0); MONOCYTES % (AUTO) 7.3 % (2.0-9.0); NEUTROPHILS # (AUTO) 3.3 K/uL (1.8-7.7); NEUTROPHILS % (AUTO) 62.7 % (40.0-70.0); PLATELET COUNT (AUTO) 632 K/uL (150-450); RED BLOOD CELL COUNT(AUTO) 3.03 MIL/uL (4.00-5.20)
[2019-02-12 07:19] VITALS: BP 150/58
[2019-02-12] MEDS: FERROUS GLUCONATE 324 MG TABLET PO SCH ×2 (07:53→17:07)
[2019-02-12] MEDS: CALCIUM CIT/VITAMIN D3 200 MG-250 UNITS TABLET PO SCH ×2 (07:55→20:17)
[2019-02-12] MEDS: FAMOTIDINE 20 MG TABLET PO SCH ×2 (07:55→20:18)
[2019-02-12] MEDS: HYDROXYCHLOROQUINE SULFATE 200 MG TABLET PO SCH (07:55)
[2019-02-12] MEDS: ACETAMINOPHEN 325 MG TABLET PO PRN ×3 (07:56→20:23)
[2019-02-12] MEDS: EPOETIN ALFA 10,000 UNITS/ML VIAL SQ SCH (07:59)
[2019-02-12] MEDS: BACITRACIN 28.4 GM OINTMENT TP SCH ×2 (08:02→20:18)
[2019-02-12] MEDS: DOCUSATE SODIUM 100 MG CAPSULE PO SCH ×2 (08:02→20:18)
[2019-02-12 08:56] VITALS: BP 146/60
[2019-02-12 15:45] VITALS: BP 142/73
[2019-02-12] MEDS: RIVAROXABAN 10 MG TABLET PO SCH (17:07)
[2019-02-12] MEDS: SIMVASTATIN 10 MG TABLET PO SCH (20:18)
[2019-02-12 20:31] LABS: GLUCOMETER DEV NAME(LOC) 2WR.2; GLUCOSE,POINT OF CARE 108 MG/DL (70-110)
[2019-02-13] MEDS ORDERED: LEVO100 PO (03:47)
[2019-02-13] MEDS ORDERED: CALC-1196 PO (03:47)
[2019-02-13] MEDS ORDERED: FAMO20 PO (03:47)
[2019-02-13] MEDS ORDERED: RIVA10 PO (03:47)
[2019-02-13] MEDS ORDERED: MULT-1239 PO (03:47)
[2019-02-13] MEDS ORDERED: HYDR200T4 PO (03:47)
[2019-02-13] MEDS ORDERED: ERGO500014 PO (03:47)
[2019-02-13] MEDS ORDERED: FERG325 PO (03:47)
[2019-02-13] MEDS ORDERED: DSS100 PO (03:47)
[2019-02-13 04:41] VITALS: BP 142/68
[2019-02-13] MEDS: LEVOTHYROXINE SODIUM 100 MCG TABLET PO SCH (06:05)
[2019-02-13 06:16] LABS: GLUCOMETER DEV NAME(LOC) 2WR.2; GLUCOSE,POINT OF CARE 112 MG/DL (70-110)
[2019-02-13] MEDS: MULTIVITAMINS WITH MINERALS, THERAPEUTIC TABLET PO SCH (07:55)
[2019-02-13] MEDS: CALCIUM CIT/VITAMIN D3 200 MG-250 UNITS TABLET PO SCH ×2 (07:55→20:20)
[2019-02-13] MEDS: TraMADol HCL 50 MG TABLET PO PRN (07:55)
[2019-02-13] MEDS: FERROUS GLUCONATE 324 MG TABLET PO SCH ×2 (07:55→17:04)
[2019-02-13] MEDS: FAMOTIDINE 20 MG TABLET PO SCH ×2 (07:55→20:20)
[2019-02-13] MEDS: BACITRACIN 28.4 GM OINTMENT TP SCH ×2 (07:56→20:21)
[2019-02-13] MEDS: DOCUSATE SODIUM 100 MG CAPSULE PO SCH (07:56)
[2019-02-13] MEDS: HYDROXYCHLOROQUINE SULFATE 200 MG TABLET PO SCH (07:56)
[2019-02-13 08:01] VITALS: BP 142/66
[2019-02-13] MEDS: ACETAMINOPHEN 325 MG TABLET PO PRN ×3 (08:01→20:21)
[2019-02-13] MEDS ORDERED: ERGOCALCIFEROL (VIT D2) 50,000 UNITS CAPSULE PO SCH (09:00)
[2019-02-13] MEDS ORDERED: DOCUSATE SODIUM 100 MG CAPSULE PO PRN (09:00)
[2019-02-13 16:44] VITALS: BP 139/62
[2019-02-13] MEDS: RIVAROXABAN 10 MG TABLET PO SCH (17:04)
[2019-02-13] MEDS: SIMVASTATIN 10 MG TABLET PO SCH (20:20)
[2019-02-14 00:08] VITALS: BP 153/70
[2019-02-14] MEDS: LEVOTHYROXINE SODIUM 100 MCG TABLET PO SCH (05:42)
[2019-02-14 06:21] LABS: GLUCOMETER DEV NAME(LOC) 2WR.1; GLUCOSE,POINT OF CARE 135 MG/DL (70-110)
[2019-02-14 07:27] VITALS: BP 143/65
[2019-02-14] MEDS: FERROUS GLUCONATE 324 MG TABLET PO SCH ×2 (07:29→17:44)
[2019-02-14] MEDS: HYDROXYCHLOROQUINE SULFATE 200 MG TABLET PO SCH (08:30)
[2019-02-14] MEDS: CALCIUM CIT/VITAMIN D3 200 MG-250 UNITS TABLET PO SCH ×2 (08:30→20:42)
[2019-02-14] MEDS: MULTIVITAMINS WITH MINERALS, THERAPEUTIC TABLET PO SCH (08:30)
[2019-02-14] MEDS: BACITRACIN 28.4 GM OINTMENT TP SCH ×2 (08:31→20:41)
[2019-02-14] MEDS: ACETAMINOPHEN 325 MG TABLET PO PRN ×2 (08:31→17:45)
[2019-02-14] MEDS: FAMOTIDINE 20 MG TABLET PO SCH ×2 (08:31→20:42)
[2019-02-14] MEDS: RIVAROXABAN 10 MG TABLET PO SCH (17:44)
[2019-02-14 17:45] VITALS: BP 137/61
[2019-02-14] MEDS: SIMVASTATIN 10 MG TABLET PO SCH (20:41)
[2019-02-15 01:23] VITALS: BP 150/67
[2019-02-15] MEDS: TraMADol HCL 50 MG TABLET PO PRN (01:23)
[2019-02-15] MEDS: LEVOTHYROXINE SODIUM 100 MCG TABLET PO SCH (06:04)
[2019-02-15 07:10] VITALS: BP 145/48
[2019-02-15] MEDS: CALCIUM CIT/VITAMIN D3 200 MG-250 UNITS TABLET PO SCH ×2 (07:49→20:20)
[2019-02-15] MEDS: HYDROXYCHLOROQUINE SULFATE 200 MG TABLET PO SCH (07:49)
[2019-02-15] MEDS: FERROUS GLUCONATE 324 MG TABLET PO SCH ×2 (07:50→17:59)
[2019-02-15] MEDS: BACITRACIN 28.4 GM OINTMENT TP SCH ×2 (07:50→20:20)
[2019-02-15] MEDS: MULTIVITAMINS WITH MINERALS, THERAPEUTIC TABLET PO SCH (07:50)
[2019-02-15] MEDS: EPOETIN ALFA 10,000 UNITS/ML VIAL SQ SCH (07:51)
[2019-02-15] MEDS: FAMOTIDINE 20 MG TABLET PO SCH ×2 (07:53→20:20)
[2019-02-15] MEDS: ACETAMINOPHEN 325 MG TABLET PO PRN ×2 (08:38→18:55)
[2019-02-15 12:31] LABS: GLUCOMETER DEV NAME(LOC) 2WR.1; GLUCOSE,POINT OF CARE 110 MG/DL (70-110)
[2019-02-15 16:03] VITALS: BP 151/74
[2019-02-15] MEDS: RIVAROXABAN 10 MG TABLET PO SCH (17:59)
[2019-02-15] MEDS: SIMVASTATIN 10 MG TABLET PO SCH (20:20)
[2019-02-16 00:30] VITALS: BP 158/65
[2019-02-16] MEDS: LEVOTHYROXINE SODIUM 100 MCG TABLET PO SCH (06:00)
[2019-02-16] MEDS: CALCIUM CIT/VITAMIN D3 200 MG-250 UNITS TABLET PO SCH ×2 (07:56→20:52)
[2019-02-16] MEDS: HYDROXYCHLOROQUINE SULFATE 200 MG TABLET PO SCH (07:56)
[2019-02-16] MEDS: FAMOTIDINE 20 MG TABLET PO SCH ×2 (07:56→20:52)
[2019-02-16] MEDS: MULTIVITAMINS WITH MINERALS, THERAPEUTIC TABLET PO SCH (07:56)
[2019-02-16] MEDS: FERROUS GLUCONATE 324 MG TABLET PO SCH ×2 (07:56→17:32)
[2019-02-16] MEDS: BACITRACIN 28.4 GM OINTMENT TP SCH (07:57)
[2019-02-16 08:24] VITALS: BP 145/71
[2019-02-16 15:15] VITALS: BP 143/62
[2019-02-16] MEDS: ACETAMINOPHEN 325 MG TABLET PO PRN ×2 (15:19→20:52)
[2019-02-16] MEDS: RIVAROXABAN 10 MG TABLET PO SCH (17:32)
[2019-02-16 19:20] LABS: GLUCOMETER DEV NAME(LOC) 2WR.1; GLUCOSE,POINT OF CARE 105 MG/DL (70-110)
[2019-02-16 20:44] VITALS: BP 142/69
[2019-02-16] MEDS: SIMVASTATIN 10 MG TABLET PO SCH (20:52)
[2019-02-17 03:00] VITALS: BP 135/60
[2019-02-17] MEDS: LEVOTHYROXINE SODIUM 100 MCG TABLET PO SCH (06:01)
[2019-02-17 06:18] LABS: HEMATOCRIT 29.5 % (36-46); HEMOGLOBIN 9.3 g/dL (12.0-16.0); LYMPHOCYTES # (AUTO) 1.1 K/uL (1.0-4.8); LYMPHOCYTES % (AUTO) 22.8 % (22.0-44.0); MEAN CORPUSCULAR HGB CONC 31.6 G/dL (31.0-37.0); MEAN CORPUSCULAR VOLUME 86 fL (80-100); MONOCYTES # (AUTO) 0.4 K/uL (0.1-1.0); MONOCYTES % (AUTO) 7.2 % (2.0-9.0); NEUTROPHILS # (AUTO) 3.1 K/uL (1.8-7.7); PLATELET COUNT (AUTO) 498 K/uL (150-450); RED BLOOD CELL COUNT(AUTO) 3.44 MIL/uL (4.00-5.20)
[2019-02-17 06:31] LABS: GLUCOMETER DEV NAME(LOC) 2WR.1; GLUCOSE,POINT OF CARE 118 MG/DL (70-110)
[2019-02-17] MEDS: FERROUS GLUCONATE 324 MG TABLET PO SCH ×2 (08:07→17:28)
[2019-02-17] MEDS: HYDROXYCHLOROQUINE SULFATE 200 MG TABLET PO SCH (08:07)
[2019-02-17] MEDS: FAMOTIDINE 20 MG TABLET PO SCH ×2 (08:07→20:52)
[2019-02-17] MEDS: CALCIUM CIT/VITAMIN D3 200 MG-250 UNITS TABLET PO SCH ×2 (08:07→20:51)
[2019-02-17] MEDS: MULTIVITAMINS WITH MINERALS, THERAPEUTIC TABLET PO SCH (08:07)
[2019-02-17] MEDS: EPOETIN ALFA 10,000 UNITS/ML VIAL SQ SCH (08:08)
[2019-02-17 10:01] VITALS: BP 148/71
[2019-02-17] MEDS: ACETAMINOPHEN 325 MG TABLET PO PRN ×2 (13:05→20:51)
[2019-02-17 15:18] VITALS: BP 143/60
[2019-02-17] MEDS: RIVAROXABAN 10 MG TABLET PO SCH (17:28)
[2019-02-17 20:50] VITALS: BP 137/65
[2019-02-17] MEDS: SIMVASTATIN 10 MG TABLET PO SCH (20:51)
[2019-02-18 01:31] VITALS: BP 151/76
[2019-02-18] MEDS: ACETAMINOPHEN 325 MG TABLET PO PRN ×2 (01:31→20:18)
[2019-02-18] MEDS: LEVOTHYROXINE SODIUM 100 MCG TABLET PO SCH (05:48)
[2019-02-18] MEDS: FAMOTIDINE 20 MG TABLET PO SCH ×2 (07:45→20:18)
[2019-02-18] MEDS: CALCIUM CIT/VITAMIN D3 200 MG-250 UNITS TABLET PO SCH ×2 (07:45→20:18)
[2019-02-18] MEDS: MULTIVITAMINS WITH MINERALS, THERAPEUTIC TABLET PO SCH (07:45)
[2019-02-18] MEDS: FERROUS GLUCONATE 324 MG TABLET PO SCH ×2 (07:45→17:33)
[2019-02-18] MEDS: HYDROXYCHLOROQUINE SULFATE 200 MG TABLET PO SCH (07:45)
[2019-02-18 09:32] VITALS: BP 154/65
[2019-02-18] MEDS ORDERED: LOPERAMIDE HCL 2 MG CAPSULE PO PRN (13:00)
[2019-02-18 16:37] VITALS: BP 160/59
[2019-02-18] MEDS: RIVAROXABAN 10 MG TABLET PO SCH (17:33)
[2019-02-18 20:15] VITALS: BP 152/64
[2019-02-18] MEDS: SIMVASTATIN 10 MG TABLET PO SCH (20:18)
[2019-02-19 05:00] VITALS: BP 157/75
[2019-02-19] MEDS: LEVOTHYROXINE SODIUM 100 MCG TABLET PO SCH (06:05)
[2019-02-19 07:17] VITALS: BP 156/73
[2019-02-19] MEDS: FERROUS GLUCONATE 324 MG TABLET PO SCH (07:35)
[2019-02-19] MEDS: MULTIVITAMINS WITH MINERALS, THERAPEUTIC TABLET PO SCH (08:31)
[2019-02-19] MEDS: HYDROXYCHLOROQUINE SULFATE 200 MG TABLET PO SCH (08:31)
[2019-02-19] MEDS: FAMOTIDINE 20 MG TABLET PO SCH (08:31)
[2019-02-19] MEDS: CALCIUM CIT/VITAMIN D3 200 MG-250 UNITS TABLET PO SCH (08:31)
[2019-02-19] MEDS: EPOETIN ALFA 10,000 UNITS/ML VIAL SQ SCH (08:32)
== END 2019-02-19 13:35 | disposition home health service (06) | DRG 534 ==
LOC: 2WR 17:07
PROVIDERS: ADMIT Physical Medicine & Rehabilitation; ATTEND Physical Medicine & Rehabilitation
DX: S72.8X1A Other fracture of right femur, initial encounter for closed fracture (principal); M97.01XA Periprosthetic fracture around internal prosthetic right hip joint, initial encounter; Z96.643 Presence of artificial hip joint, bilateral; M81.0 Age-related osteoporosis without current pathological fracture; M32.9 Systemic lupus erythematosus, unspecified; M19.90 Unspecified osteoarthritis, unspecified site; D64.9 Anemia, unspecified; E03.9 Hypothyroidism, unspecified; E11.9 Type 2 diabetes mellitus without complications; E83.51 Hypocalcemia; E78.5 Hyperlipidemia, unspecified; Z79.01 Long term (current) use of anticoagulants; Z98.51 Tubal ligation status; Z79.899 Other long term (current) drug therapy; Z88.8 Allergy status to other drugs, medicaments and biological substances; Z88.6 Allergy status to analgesic agent; Z83.3 Family history of diabetes mellitus; Z82.49 Family history of ischemic heart disease and other diseases of the circulatory system
CPT/HCPCS: 82271; 82306; 83036; 83540; 83550; 84443; 87081; 97110; 97112; 97116; 97140; 97150; 97162; 97166; 97530; 97535; 99366; J0885; Q0162

== ENCOUNTER → 2019-09-14 | Outpatient (CLI) | payer OTHER ==
[~2019-09-14] MED LIST changes: +CALC-1196 PO; +ERGO500014 PO; +FAMO20 PO; +FERG325 PO; +LEVO100 PO; -LEVO88TA4 PO; -LISI-661 PO; +MULT-1239 PO; -PERCT PO
== END | disposition home or self-care (01) ==
LOC: RADPV 09:11
PROVIDERS: ATTEND Internal Medicine Rheumatology
DX: M25.562 Pain in left knee (principal)

== ENCOUNTER → 2021-01-08 | Outpatient (CLI) | payer OTHER | END | disposition home or self-care (01) | LOC: RADPV 08:15 | PROVIDERS: ATTEND Family Medicine | DX: N88.8 Other specified noninflammatory disorders of cervix uteri (principal) | CPT/HCPCS: 76830; 76856 ==